=== PATIENT | male | born 1960 | race African-American/Black ===

== ENCOUNTER 2020-02-11 10:33 | Outpatient (CLI) | payer MEDICARE, SELFPAY ==
--- NOTE | ~2020-02-11 | US_ITS ---
EXAMINATION: US right upper quadrant DATE: 02/11/2020 11:13 INDICATION: Right upper quadrant abdominal pain. TECHNIQUE: Multiple grayscale and Doppler ultrasound images of the abdomen were obtained. COMPARISON: CT abdomen 11/22/2017 FINDINGS: The visualized portions of the head and body of the pancreas are normal. There is diffuse h epatic steatosis. No liver surface nodularity. There is normal flow in main portal vein. The gallblad naty is normal in size. No gallstones or gallbladder wall thickening. There was no sonographic Koroma sign. The common duct is normal and measures 1 mm. IMPRESSION: 1. Diffuse hepatic steatosis. Reviewed, dictated and finalized at location A.
== END 2020-02-11 10:34 | disposition home or self-care (01) ==
PROVIDERS: PCP Internal Medicine; Visit Provider Internal Medicine
DX: R10.11 Right upper quadrant pain (principal); K76.0 Fatty (change of) liver, not elsewhere classified
CPT/HCPCS: 76705

== ENCOUNTER 2020-02-19 07:57 | Outpatient (CLI) | payer MEDICARE, SELFPAY ==
--- NOTE | ~2020-02-19 | NM_ITS ---
EXAMINATION: NM hepatobiliary w pharm DATE: 02/19/2020 10:29 INDICATION: Abdominal pain COMPARISON: None. TECHNIQUE: 5.12 mCi Tc-99m mebrofenin (Choletec) was administered intravenously. Scintigraphic image s of the abdomen were obtained for one hour. 1.5 mcg sincalide (Kinevac) was administered by slow int ravenous infusion, and imaging was continued for 30 minutes. Gallbladder ejection fraction was calcul ated by the technologist. FINDINGS: There is normal clearance of radiotracer from the blood pool. There is homogeneous tracer uptake by t he liver. Activity progresses to the gallbladder and bowel. The gallbladder ejection fraction (GBEF) is 79% (normal 10-90%, but most patient with gallbladder dysfunction have GBEF < 35% which does over lap with the normal range). IMPRESSION: 1. Normal hepatobiliary scan. Reviewed, dictated and finalized at location A.
[2020-02-19 10:19] LABS: Basophils Absolute Auto 0.1 K/mm3 (0.0-0.1); Basophils Percent Auto 0.7 % (0.2-1.2); Eosinophils Absolute Auto 0.3 K/mm3 (0-0.3); Eosinophils Percent Auto 3.7 % (0-4.4); Hematocrit 47.8 % (42.0-52.0); Hemoglobin 15.6 g/dL (14.0-18.0); Immature Granulocyte Absolute 0.02 K/mm3 (0.00-0.031); Immature Granulocyte Percent A 0.2 % (0-0.5); Lymphocytes Absolute Auto 2.64 K/mm3 (0.9-3.2); Lymphocytes Percent Auto 28.9 % (18.3-44.2); Mean Corpuscular HGB Conc 32.6 g/dl (32-36); Mean Corpuscular Hemoglobin 30.2 pg (26-34); Mean Corpuscular Volume 92.6 fl (80-100); Mean Platelet Volume 8.8 fl (7.4-10.4); Monocytes Absolute Auto 0.8 K/mm3 (0.1-0.6); Monocytes Percent Auto 8.2 % (2.6-8.5); Neutrophils Absolute Auto 5.3 K/mm3 (1.3-6.7); Neutrophils Percent Auto 58.3 % (45.5-73.1); Platelet Count Result 309 k/mm3 (150-375); Red Blood Count 5.16 M/mm3 (4.6-6.20); Red Cell Distribution Width 12.9 % (11.5-14.5); White Blood Count 9.2 K/mm3 (4.5-10.0)
[2020-02-19 10:36] LABS: Hemoglobin A1C 6.1 % (<5.7)
[2020-02-19 10:49] LABS: Alanine Aminotransferase 28 U/L (4-50); Albumin Level 4.6 g/dL (3.5-5.1); Alkaline Phosphatase 83 U/L (38-126); Amylase 131 U/L (30-110); Aspartate Amino Transferase 41 U/L (17-59); Bilirubin,Total 0.6 mg/dL (0.2-1.3); Blood Urea Nitrogen 12 mg/dL (9-20); Calcium 9.4 mg/dL (8.4-10.2); Carbon Dioxide 31 mmol/L (22-30); Chloride 102 mmol/L (98-107); Estimated Glomerular Filt Rate > 60; Glucose 100 mg/dL (75-110); Lipase 115 U/L (23-300); Potassium 4.4 mmol/L (3.4-5.0); Sodium 136 mmol/L (137-145)
== END 2020-02-19 07:58 | disposition home or self-care (01) ==
PROVIDERS: PCP Internal Medicine; Visit Provider Internal Medicine
DX: R10.9 Unspecified abdominal pain (principal); R73.01 Impaired fasting glucose; K82.8 Other specified diseases of gallbladder
CPT/HCPCS: 36415; 78227; 80053; 82150; 83036; 83690; 85025; A9537; J2805

== ENCOUNTER 2020-04-11 00:28 | Outpatient (CLI) | payer MEDICARE, SELFPAY ==
[2020-04-11 18:41] LABS: SARS-CoV-2 RNA PCR Negative
== END 2020-04-11 00:29 | disposition home or self-care (01) ==
LOC: ANHCOVIDDT 00:28
PROVIDERS: PCP Internal Medicine; Visit Provider Internal Medicine Gastroenterology
DX: Z01.812 Encounter for preprocedural laboratory examination (principal); Z11.59 Encounter for screening for other viral diseases
CPT/HCPCS: 87635; C9803; U0003

== ENCOUNTER 2020-04-13 03:05 | Day surgery (SDC) | payer MEDICARE, SELFPAY ==
[2020-04-05 16:05] VITALS: BMI 27.5
[2020-04-13 08:30] VITALS: BP 119/80; PULSE 70; RESP 18; TEMP 35.7; O2SAT 100
[2020-04-13] MEDS: LACTATED RINGERS 1,000 ML 150 ML IV CONT (08:43)
--- NOTE | 2020-04-13 09:06 | WPDHPUPDATE1 ---
History and Physical Update Update Date/Time: 04/13/20 09:06 History and Physical has been reviewed, including an updated exam of the patient. There are NO changes in the patient's condition. Risks, benefits, and alternatives have been discussed and questions answered. Patient agrees to proceed with procedure.
--- NOTE | 2020-04-13 09:09 | WPDANESEPPF ---
Anes - Initial Pre Proc Eval Procedure: Operation Date: 04/13/20 09:45 Proposed Procedures p Esophagogastroduodenoscopy & Screening Colonoscopy - Juan Miguel Barrera MD Date/Time: 04/13/20 09:09 Surgeon: Juan Miguel Barrera MD Pre Op Diagnosis: abd pain, epigastric pain, neoplasm screening Patient Data Age: 59 Gender: M Height: 5 ft 5 in Weight: 76.2 kg Last Vital Signs Temp 96.3 F L 04/13/20 08:30 Pulse 70 04/13/20 08:30 Resp 18 04/13/20 08:30 BP 119/80 04/13/20 08:30 Pulse Ox 100 04/13/20 08:30 Allergies Allergy/AdvReac Type Severity Reaction Status Date / Time No Known Allergies Allergy Verified 04/13/20 08:29 Home Medications Medication Instructions Recorded Confirmed Type cyclobenzaprine 10 mg tablet 10 mg PO TID 10/13/19 04/05/20 History hydrocortisone valerate 0.2 % 1 applic TOPICAL BID PRN 10/13/19 04/13/20 History topical cream ketoconazole 2 % shampoo 1 applic TOPICAL 2XW 10/13/19 04/13/20 History pravastatin 40 mg tablet 40 mg PO DAILY #90 tablet 12/03/19 04/13/20 Rx cholecalciferol (vitamin D3) 125 125 mcg PO DAILY 02/11/20 04/13/20 History mcg (5,000 unit) capsule gabapentin 300 mg capsule 300 mg PO Q8H cap 02/11/20 04/13/20 History omeprazole 40 mg capsule,delayed 40 mg PO DAILY #30 cap 03/15/20 04/05/20 Rx release peg 3350-electrolytes 236 240 ml PO Q10M #4000 ml 03/31/20 Rx gram-22.74 gram-6.74 gram-5.86 gram solution Patient hx anesthesia problems: none Family hx anesthesia problems: none PMFSH Past Medical History Medical History (Updated 03/24/20 @ 10:36 by Juan Miguel Barrera MD) Abdominal pain Dyspepsia Family history of colon cancer in father Fatty liver Family History Family History (Updated 10/28/18 @ 14:26 by DOCTOR UNKNOWN) Mother Hypertension Family history of arthritis Family history of pancreatic cancer, Onset Age: 82 Patient's mother is , Onset Age: 82 Father Family history of arthritis Carcinoma of colon, Onset Age: 82 Sibling Patient's sister is in good health Patient's brother is in good health Other Family history of malignant neoplasm Social History Social History Smoking status: Never smoker Alcohol intake: current Anes - Eval Final PreProcedure Day of Procedure 04/13/20 09:09 Patient weight: normal Heart: regular rate and rhythm Lungs: clear to auscultation Airway: Mallampati scale class II Neurological: alert and oriented Last oral intake: >/= 8 hours ASA classification: III Emergent: no Anesthetic plan: proceed Anesthesia type and monitoring: general GIVS and standard monitoring Informed Consent: The patient's anesthetic plan and its attendant risks and benefits were discussed with the patient/family/POA. Questions were solicited and answers provided to the satisfaction of the patient/family/POA.
[2020-04-13 09:56] VITALS: BP 121/68; PULSE 85; RESP 18; O2SAT 100
[2020-04-13 10:06] VITALS: BP 117/79; PULSE 77; RESP 18; O2SAT 100
[2020-04-13 10:16] VITALS: BP 116/77; PULSE 74; RESP 18; O2SAT 98
== END 2020-04-13 10:39 | disposition home or self-care (01) ==
PROVIDERS: PCP Internal Medicine; Visit Provider Internal Medicine Gastroenterology
PROC: 0DJ08ZZ Inspection of Upper Intestinal Tract, Via Natural or Artificial Opening Endoscopic (ICD-10-PCS; CPT 43235; principal; 2020-04-13 09:45)
DX: Z12.11 Encounter for screening for malignant neoplasm of colon (principal); D12.3 Benign neoplasm of transverse colon; K29.50 Unspecified chronic gastritis without bleeding; B96.81 Helicobacter pylori [H. pylori] as the cause of diseases classified elsewhere; K57.30 Diverticulosis of large intestine without perforation or abscess without bleeding; K64.8 Other hemorrhoids; Z80.0 Family history of malignant neoplasm of digestive organs; E78.5 Hyperlipidemia, unspecified; K76.0 Fatty (change of) liver, not elsewhere classified
CPT/HCPCS: 45385; 43239; 88305; 88342; J2704; J7120

== ENCOUNTER 2021-01-25 10:53 | Observation (INO) | payer MEDICARE, OTHER, SELFPAY ==
[2021-01-25] VITALS (17 sets, daily range): BP systolic 119–158; BP diastolic 71–106; PULSE 54–85; RESP 10–18; TEMP 36.4–36.5; O2SAT 97–100
--- NOTE | ~2021-01-25 | XR_ITS ---
EXAMINATION: XR chest 1V portable EXAM DATE: 01/25/2021 12:04 INDICATION: Weakness. Dizziness. TECHNIQUE: Portable AP frontal chest x-ray was obtained. There is no prior study for comparison. FINDINGS: The lungs are clear. There are no pleural effusions. The cardiomediastinal silhouette is within normal limits. There is no pneumothorax suspected. The bones and soft tissues are unremarkab le. Cervical fusion hardware. IMPRESSION: No acute cardiopulmonary findings. Reviewed, dictated and finalized at location A.
--- NOTE | ~2021-01-25 | MR_ITS ---
EXAMINATION: MR brain/brain stem wo/w con DATE: 01/26/2021 08:48 INDICATION: Cerebral vascular accident. TECHNIQUE: Magnetic resonance imaging (MRI) of the brain and brainstem was performed without and with 14 mL MultiHance intravenous contrast. Sequences included sagittal and axial T1-weighted FSE, axial diffusion-weighted FS EPI, axial T2*-weighted GRE, axial T2-weighted FLAIR Propeller, and axial T2-we ighted Propeller. Postcontrast sequences included axial and coronal T1-weighted FSE. Apparent diffusi on coefficient (ADC) maps were created. COMPARISON: Head CT 01/25/2021 FINDINGS: There are scattered areas of nonspecific increased T2-weighted signal intensity in the cere bral white matter, which is within normal limits for the patient's age. There is no intracranial hemo rrhage, acute infarction, or abnormal intracranial mass lesion. The ventricles are normal in size. Th ere is mild mucosal thickening in the paranasal sinuses. The orbits are normal. The mastoid air cells are normal. IMPRESSION: 1. Normal aging brain. Reviewed, dictated and finalized at location A. IMPRESSION: 1. Normal aging brain.
--- NOTE | ~2021-01-25 | CT_ITS ---
EXAMINATION: CTA brain carotid EXAM DATE: 01/25/2021 11:51 INDICATION: Dizziness, lightheadedness, symptoms since Saturday. TECHNIQUE: Noncontrast head CT. Spiral CTA of the carotid arteries was performed with intravenous i njection 100 cc of Omnipaque 350. Axial, coronal, sagittal reformatted images reviewed. Additional r eformatted images created on dedicated 3-D workstation. NASCET comparable standard used to assess th e degree of arterial stenosis. Spiral CT angiogram cerebral arteries performed with the same intrave nous injection of contrast. Source images of the brain CTA transferred to dedicated workstation for 3 -D rotational image creation. Coronal, sagittal maximum intensity pixel images also reviewed. The d ose-length product (DLP) for this examination was 1645.64 mGy-cm. The exposure was tailored accordi ng to patient size, and iterative reconstruction (ASIR) was used as additional dose reduction techniq ue. There is no prior study for comparison. FINDINGS: There is minimal bilateral carotid siphon arterial sclerosis without stenosis. No carotid b ulb plaque, 0% stenosis bilaterally. The right vertebral artery is dominant. There is no carotid or vertebral basilar arterial dissection or fibromuscular dysplasia. There are no cerebral artery aneury sms. There is symmetric cerebral artery arborization. The sagittal, transverse and sigmoid sinuses en kandy normally, no venous sinus thrombosis. Internal cerebral veins also enhance normally. There is no acute intraparenchymal hemorrhage. No evidence of intraparenchymal brain mass lesion. N o evidence of acute infarction. There is no mass effect or midline shift. There is no obstructive hyd rocephalus suspected. There are no extra-axial collections. There are no calvarial acute fractures. Small to moderate-sized right maxillary sinus mucous retention cyst. Right upper lobe calcified granu dionte. Cervical surgical changes, spondylosis. IMPRESSION: 1. No acute carotid or intracranial findings. 2. Bilateral carotid bulb 0% stenosis. Reviewed, dictated and finalized at location A.
--- NOTE | 2021-01-25 11:00 | ECG_ITS ---
Measurements Intervals [place] Rate: 79 P: 52 MT: 163 QRS: 1 QRSD: 89 T: -3 QT: 326 QTc: 375 Interpretive Statements SINUS RHYTHM DELAYED PRECORDIAL R/S TRANSITION NONSPECIFIC T-WAVE ABNORMALITY- INFERIOR LEADS BORDERLINE ECG Electronically Signed On 01-25-2021 11:51:07 CDT by Jarad Singh D.O.
[2021-01-25 11:12] LABS: Basophils Absolute Auto 0.1 K/mm3 (0.0-0.1); Basophils Percent Auto 0.5 % (0.2-1.2); Eosinophils Absolute Auto 0.2 K/mm3 (0-0.3); Eosinophils Percent Auto 1.5 % (0-4.4); Hemoglobin 14.7 g/dL (14.0-18.0); Immature Granulocyte Absolute 0.04 K/mm3 (0.00-0.031); Immature Granulocyte Percent A 0.3 % (0-0.5); Lymphocytes Absolute Auto 2.14 K/mm3 (0.9-3.2); Lymphocytes Percent Auto 17.4 % (18.3-44.2); Mean Corpuscular HGB Conc 32.7 g/dl (32-36); Mean Corpuscular Hemoglobin 30.2 pg (26-34); Mean Corpuscular Volume 92.4 fl (80-100); Mean Platelet Volume 8.7 fl (7.4-10.4); Monocytes Absolute Auto 0.7 K/mm3 (0.1-0.6); Monocytes Percent Auto 5.4 % (2.6-8.5); Neutrophils Absolute Auto 9.2 K/mm3 (1.3-6.7); Neutrophils Percent Auto 74.9 % (45.5-73.1); Platelet Count Result 339 k/mm3 (150-375); Red Blood Count 4.87 M/mm3 (4.6-6.20); Red Cell Distribution Width 13.6 % (11.5-14.5); White Blood Count 12.3 K/mm3 (4.5-10.0)
[2021-01-25 11:20] LABS: Anion Gap 6 mmol/L (8-16); Blood Urea Nitrogen 13 mg/dL (9-20); Calcium 9.1 mg/dL (8.4-10.2); Carbon Dioxide 28 mmol/L (22-30); Chloride 104 mmol/L (98-107); Estimated CRCL calculation 58 ml/min; Estimated Glomerular Filt Rate > 60; Glucose 103 mg/dL (75-110); Potassium 4.1 mmol/L (3.4-5.0); Sodium 138 mmol/L (137-145)
[2021-01-25 11:30] LABS: INR 0.8; Prothrombin Time 12.1 Seconds (11.1-14.7)
[2021-01-25 11:31] LABS: Partial Thromboplastin Time 25.8 SECONDS (22.3-36.8)
[2021-01-25 11:32] LABS: Troponin I < 0.012 ng/mL (0.000-0.034)
--- NOTE | 2021-01-25 13:19 | ED.NEUROSD ---
HPI - Neuro Symptoms/Deficit General Chief Complaint: Neuro Symptoms/Deficit <Leandro Winston PA-C - Last Filed: 01/25/21 13:25> Stated Complaint: neuro deficits, slurred speech <CLADUIA Hackett Last Filed: 01/25/21 13:25> Time Seen by Provider: 01/25/21 10:56 <Leandro Winston PA-C - Last Filed: 01/25/21 13:25> Source: patient, family and RN notes reviewed <CLAUDIA Hackett Last Filed: 01/25/21 13:25> Mode of arrival: ambulatory <CLAUDIA Hackett Last Filed: 01/25/21 13:25> Limitations: no limitations <CLAUDIA Hackett Last Filed: 01/25/21 13:25> History of Present Illness HPI Narrative: Patient is a 60-year-old male who presents to emergency department for evaluation of right-sided cramping that began in the foot and ascended to the upper extremity and into the head patient denies similar occurrence in the past this began Saturday evening persisted into the morning also had a component of feeling dizzy and lightheaded and feeling as though his gait is unsteady. Patient denies similar occurrence in the past. Patient also noted a twinge in the right side of the neck. Patient notes that his symptoms have persisted since onset. On arrival patient in no distress. <Leandro Winston PA-C - Last Filed: 01/25/21 13:25> Related Data Home Medications: Home Medications Medication Instructions Recorded Confirmed cyclobenzaprine 10 mg tablet 10 mg PO BID PRN 10/13/19 01/25/21 hydrocortisone valerate 0.2 % 1 applic TOPICAL BID PRN 10/13/19 01/25/21 topical cream ketoconazole 2 % shampoo 1 applic TOPICAL 2XW PRN 10/13/19 01/25/21 cholecalciferol (vitamin D3) 125 125 mcg PO DAILY 02/11/20 01/25/21 mcg (5,000 unit) capsule gabapentin 300 mg PO BID 01/25/21 01/25/21 <CLAUDIA Hackett Last Filed: 01/25/21 13:25> Allergies/Adverse Reactions: Allergies Allergy/AdvReac Type Severity Reaction Status Date / Time No Known Allergies Allergy Verified 01/25/21 11:01 <Leandro Winston PA-C - Last Filed: 01/25/21 13:25> Review of Systems Review of Systems: All systems reviewed & are unremarkable except as noted in HPI and below <Leandro Winston PA-C - Last Filed: 01/25/21 13:25> PMFSH Past Medical History Medical History: Medical History (Updated 01/25/21 @ 13:25 by Leandro Winston PA-C) Abdominal pain Cervical vertebral fusion Dyspepsia Family history of colon cancer in father Fatty liver <Leandro Winston PA-C - Last Filed: 01/25/21 13:25> Surgical History Surgical History: Surgical History (Updated 01/25/21 @ 13:22 by Leandro Winston PA-C) History of lumbar fusion <Leandro Winston PA-C - Last Filed: 01/25/21 13:25> Family History Family History: Family History (Updated 01/25/21 @ 15:52 by Stephanie Grossman RN) Mother Family history of arthritis Patient's mother is , Onset Age: 82 Family history of pancreatic cancer, Onset Age: 82 Hypertension Father Family history of arthritis Carcinoma of colon, Onset Age: 82 Sibling Patient's brother is in good health Patient's sister is in good health Other Family history of malignant neoplasm <Leandro Winston PA-C - Last Filed: 01/25/21 13:25> Social History Social History: Social History Smoking status: Never smoker Alcohol intake: former Substance use: never Spiritual care concerns: No <Leandro Winston PA-C - Last Filed: 01/25/21 13:25> Exam Narrative: Exam Narrative: GENERAL: Well-appearing, well-nourished, and in no acute distress. HEAD: Normocephalic, atraumatic. EYES: PERRLA and EOMI. ENT: Nares clear, no rhinorrhea or epistaxis. Mucous membranes moist. NECK: Supple. No adenopathy or masses. No carotid bruits or JVD CHEST: Clear to auscultation. No respiratory distress. No wheezes rales or rhonchi HEART: Regular rate and rhythm. No murmur heard. Enriqueta
[2021-01-25] MEDS: ASPIRIN 325 MG TABLET PO (14:00)
--- NOTE | 2021-01-25 15:20 | PCOTNOTE ---
Attempted OT evaluation, but unable to complete as patient has not arrived to floor yet. Patient still in ER at this time. Will attempt again tomorrow.
--- NOTE | 2021-01-25 15:24 | PC.NURSE ---
This patient, Juliano Hernandez, was admitted to Medical Room 349-01. Patient/family oriented to hospital policies and general routines including ID bracelet, bed and alarms, visiting hours, pain management, procedures, bathroom and other care routines, personal items, smoking policy, room service/diet, and visiting hours. Information on how to activate the Rapid Response Team has been discussed. Patient/Family are encouraged to report perceived risks to care and to ask questions if they do not understand what they are told or what they should do.
--- NOTE | 2021-01-25 17:55 | PM.IMHP ---
H&P: HPI History of Present Illness Date/Time: 01/25/21 17:55 Chief Complaint: Dizziness Narrative: This is a 60-year-old male with past medical history significant for RECENT C6 THROUGH 7 ANTERIOR DISKECTOMY AND FUSION SECONDARY TO MYELOPATHY. THE PATIENT HAS BEEN DOING WELL AFTER THIS PROCEDURE THAT WAS PERFORMED IN OCTOBER AT [facility]. PATIENT HAS BEEN IN HIS USUAL STATE OF HEALTH UNTIL HE FELL DIZZY SENSATION OF WARMTH TO THE RIGHT HEMIBODY AND HEMICRANIA WITH SHOOTING PAIN THROUGH HIS RIGHT, THIS HAPPENED WHILE THE PATIENT WAS IN HIS SLEEP WHEN HE GOT UP IN THE MORNING HE FELT ON STATUS BUT DID NOT NOTICE ANY FOCAL MOTOR DEFICIT OR VISION CHANGES. PATIENT HAS BEEN ABLE TO VOID DENIES ANY INCONTINENCE. NO NUMBNESS OR TINGLING. DENIES ANY PAIN AT THE PRESENT TIME. PATIENT DENIES ANY FEVERS RIGORS OR CHILLS NO NAUSEA NO VOMITING NO DIARRHEA NO SHORTNESS OF BREATH NO COUGH NO SPUTUM PRODUCTION. PRELIMINARY WORKUP WAS ESSENTIALLY NONREVEALING. WILL PLACE PATIENT IN OBSERVATION OVERNIGHT. Review of Systems Review of Systems: Narrative: PATIENT HAD RECENT C6 THROUGH 7 SURGERY PERFORMED AT [facility] IN OCTOBER HE HAS BEEN DOING FAIRLY WELL GOING TO HIS PHYSICAL THERAPY SESSIONS HE PRESENTED TO THE EMERGENCY ROOM AFTER IN THE MIDDLE OF THE NIGHT HE WOKE UP WITH RIGHT-SIDED HEMIBODY AND HEMICRANIA SHOOTING PAIN WARMTH AND DIZZINESS IN THE MORNING HE FELT DIZZY All systems reviewed & are unremarkable except as noted in HPI and below (HPI) PMFSH Past Medical History Medical History (Updated 01/25/21 @ 13:25 by Leandro Winston PA-C) Abdominal pain Cervical vertebral fusion Dyspepsia Family history of colon cancer in father Fatty liver Surgical History Surgical History (Updated 01/25/21 @ 13:22 by Leandro Winston PA-C) History of lumbar fusion Family History Family History (Updated 01/25/21 @ 15:52 by Stephanie Grossman RN) Mother Family history of arthritis Patient's mother is , Onset Age: 82 Family history of pancreatic cancer, Onset Age: 82 Hypertension Father Family history of arthritis Carcinoma of colon, Onset Age: 82 Sibling Patient's brother is in good health Patient's sister is in good health Other Family history of malignant neoplasm Social History Social History Smoking status: Never smoker Alcohol intake: former Substance use: never Spiritual care concerns: No Meds Home Medications and Allergies Home Medications Medication Instructions Recorded Confirmed Type cyclobenzaprine 10 mg tablet 10 mg PO BID PRN 10/13/19 01/25/21 History hydrocortisone valerate 0.2 % 1 applic TOPICAL BID PRN 10/13/19 01/25/21 History topical cream ketoconazole 2 % shampoo 1 applic TOPICAL 2XW PRN 10/13/19 01/25/21 History cholecalciferol (vitamin D3) 125 125 mcg PO DAILY 02/11/20 01/25/21 History mcg (5,000 unit) capsule rosuvastatin 20 mg tablet 20 mg PO DAILY #90 tablet 10/17/20 01/25/21 Rx omeprazole 40 mg capsule,delayed See Rx Instructions .ROUTE 01/10/21 01/25/21 Rx release .COMPLEX #90 cap gabapentin 300 mg PO BID 01/25/21 01/25/21 History Allergies Allergy/AdvReac Type Severity Reaction Status Date / Time No Known Allergies Allergy Verified 01/25/21 11:01 Vital Signs Vital Signs - 24 hr 01/25/21 10:57 01/25/21 11:15 01/25/21 13:55 Temperature Pulse Rate 83 79 54 L Respiratory Rate 18 15 16 Blood Pressure 158/106 H 154/96 H 137/97 H Pulse Oximetry 99 97 98 01/25/21 14:01 01/25/21 14:19 01/25/21 14:34 Temperature Pulse Rate 82 78 77 Respiratory Rate 18 10 L 13 Blood Pressure Pulse Oximetry 99 97 98 01/25/21 14:45 01/25/21 14:46 01/25/21 15:00 Temperature Pulse Rate 85 82 79 Respiratory Rate 15 11 L 12 Blood Pressure 120/88 125/81 Pulse Oximetry 100 100 98 01/25/21 15:01 01/25/21 15:18 01/25/21 15:25 Temperature Pulse Rate 75 78 Respiratory Rate 12 11 L 16 Blo
[2021-01-25] MEDS: GABAPENTIN 300 MG CAPSULE PO (20:59)
[2021-01-25 21:28] LABS: Glucose Point of Care 108 (65-105)
[2021-01-26] VITALS: PULSE 78
[2021-01-26 04:00] VITALS: BP 125/85; PULSE 72; PULSE 78; RESP 16; TEMP 36.6; O2SAT 100
--- NOTE | 2021-01-26 06:00 | ECHO_ITS ---
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 Strain analysis performed. Summary 1. Complete two-dimensional, color flow and Doppler transthoracic echocardiogram is performed. 2. Left ventricular chamber dimension is normal. 3. Left ventricular systolic function is normal, estimated at 60-65%. 4. There is mildly increased left ventricular wall thickness. 5. The left ventricular diastolic function is grade I diastolic dysfunction. 6. E/e' 4 is not elevated. 7. Global longitudinal strain is normal at -20.2%. Left Ventricle E/e' 4 is not elevated. Global longitudinal strain is normal at -20.2%. Left ventricular chamber dimension is normal. Left ventricular systolic function is normal, estimated at 60-65%. There is mildly increased left ventricular wall thickness. The left ventricular diastolic function is grade I diastolic dysfunction. Right Ventricle Right ventricular systolic function is normal with normal TAPSE 2.0 cm. Right ventricular chamber dimension is normal. Left Atria Left atrial chamber dimension is normal. Right Atria Right atrial chamber dimension is normal. Aortic Valve The aortic valve is trileaflet. There is no aortic valve stenosis. There is no aortic valve regurgitation. Pulmonic Valve There is no pulmonic regurgitation. Mitral Valve There is no mitral valve stenosis. There is no mitral valve regurgitation. Tricuspid Valve There is no tricuspid valve regurgitation. Pericardium/Pleural There is no pericardial effusion. Inferior Vena Cava Normal inferior vena cava with >50% collapse upon inspiration consistent with normal right atrial pressure, 5 mmHg. Aorta The aortic root size at the sinus of Valsalva is normal. Left Ventricular Outflow Tract Name Value Normal LVOT 2D LVOT Diameter 2.0 cm LVOT Doppler LVOT Peak Gradient 4 mmHg LVOT Mean Gradient 2 mmHg LVOT VTI 17 cm LVOT VTI/AV VTI Ratio 0.9 LVOT Stroke Volume 55 ml LVOT CO 4.0 l/min LVOT CI 2.2 l/min/m2 Mitral Valve Name Value Normal MV Doppler
[2021-01-26 08:00] VITALS: PULSE 85
[2021-01-26 08:30] VITALS: BP 141/84; PULSE 80; RESP 18; TEMP 36.2; O2SAT 99
[2021-01-26] MEDS: PANTOPRAZOLE 40 MG TABLET PO (08:51)
[2021-01-26] MEDS: ROSUVASTATIN 10 MG TABLET 20 MG PO (08:51)
[2021-01-26] MEDS: CHOLECALCIFEROL 1,000 UNITS TABLET 5000 UNITS PO (08:51)
[2021-01-26] MEDS: GABAPENTIN 300 MG CAPSULE PO (09:36)
--- NOTE | 2021-01-26 10:58 | PM.DS ---
DS: Admitting Diagnosis Admitting Diagnosis Admitting Diagnosis: 1) Dizziness: Code(s): R42 - Dizziness and giddiness Status: Acute Assessment and Plan: PRELIMINARY WORKUP IS ESSENTIALLY NONREVEALING NONFOCAL PHYSICAL EXAM LIKELY SECONDARY TO MEDS PATIENT IS ON FLEXERIL AND GABAPENTIN WHICH CAN MAKE PATIENT SIGNIFICANTLY ORTHOSTATIC WILL STOP FLEXERIL DISCUSS WITH PATIENT TAPERING OFF OF GABAPENTIN FOR WHICH HE WILL FOLLOW-UP IN OUTPATIENT SETTING WITH HIS NEUROSURGEON AND PCP SUPPORTIVE CARE (2) GERD (gastroesophageal reflux disease): Qualifiers: Esophagitis presence: with esophagitis Esophagitis bleeding: without hemorrhage Qualified Code(s): K21.00 - Gastro-esophageal reflux disease with esophagitis, without bleeding Code(s): K21.9 - Gastro-esophageal reflux disease without esophagitis Status: Acute Assessment and Plan: CONTINUE PPI (3) 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: Code(s): Z98.890 - Other specified postprocedural states Status: Acute Assessment and Plan: STABLE DS: Discharge Diagnosis Discharge Diagnosis (1) Dizziness: Code(s): R42 - Dizziness and giddiness Status: Acute Assessment and Plan: PRELIMINARY WORKUP IS ESSENTIALLY NONREVEALING NONFOCAL PHYSICAL EXAM LIKELY SECONDARY TO MEDS PATIENT IS ON FLEXERIL AND GABAPENTIN WHICH CAN MAKE PATIENT SIGNIFICANTLY ORTHOSTATIC WILL STOP FLEXERIL DISCUSS WITH PATIENT TAPERING OFF OF GABAPENTIN FOR WHICH HE WILL FOLLOW-UP IN OUTPATIENT SETTING WITH HIS NEUROSURGEON AND PCP SUPPORTIVE CARE (2) GERD (gastroesophageal reflux disease): Qualifiers: Esophagitis presence: with esophagitis Esophagitis bleeding: without hemorrhage Qualified Code(s): K21.00 - Gastro-esophageal reflux disease with esophagitis, without bleeding Code(s): K21.9 - Gastro-esophageal reflux disease without esophagitis Status: Acute Assessment and Plan: CONTINUE PPI (3) 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 PRELIMINARY WORKUP WAS ESSENTIALLY NONREVEALING. IT WAS FELT THAT THIS WAS SECONDARY TO PATIENT'S NEUROPATHY SECONDARY TO RADICULOPATHY AND RECENT SURGERY PATIENT WAS NONFOCAL PHYSICAL EXAM. PATIENT WAS PLACED IN OBSERVATION FOR FURTHER MONITORING. OVERNIGHT THERE WERE NO NEW EVENTS CONSULTS OBTAINED: NO CONSULTS PROCEDURES: NO PROCEDURES Status at Discharge Cognitive/behavioral status at discharge: AAOX3 Functional status at discharge: independent ambulation Overall status at discharge: patient is back to baseline Time Spent with Patient Time attestation: Total time spent providing and/or coordinating discharge services: Exam Narrative: Exam Narrative: PATIENT IS SITTING IN BED EATING DINNER WELL-APPEARING IN NO ACUTE DISTRESS Const: General: comfortable, no acute distress, well developed, alert and awake Nutritional Appearance: average body habitus Orientation/consciousness: patient oriented x3 HENMT: Head: normal to inspection, normocephalic and atraumatic Ears: hearing grossly normal bilaterally Face and sinus: normal facial exam Eyes: General: appearance normal, both eyes and all related structures Pupils: Equal, round and reactive pupils present EOM: EOMs intact bilaterally Neck: Neck: full ROM, no lymphadenopathy and no JVD Thyroid: thyroid normal Lymphatic: no lymphadenopathy noted Resp: Effort & Inspection: normal respiratory effort
== END 2021-01-26 11:55 | disposition home or self-care (01) ==
LOC: ANHED 13:25 → ANH3MED 01-26 10:58
PROVIDERS: Emergency Medicine Emergency Medical Services; Admitting Provider Family Medicine; Emergency Provider General Practice; PCP Internal Medicine; Visit Provider Internal Medicine
DX: R42 Dizziness and giddiness (principal); Z98.1 Arthrodesis status; K21.9 Gastro-esophageal reflux disease without esophagitis; I51.9 Heart disease, unspecified; M79.671 Pain in right foot
CPT/HCPCS: 36415; 70496; 70498; 70553; 71045; 80048; 82948; 84484; 85025; 85610; 85730; 93005; 93306; 97161; 97165; 99285; A9270; A9577; G0378; Q9967

== ENCOUNTER 2022-10-24 01:36 | Day surgery (SDC) | payer MEDICARE, SELFPAY ==
[2022-10-22 11:03] VITALS: BMI 26.2
[2022-10-24 07:21] VITALS: BP 116/72; PULSE 70; RESP 20; TEMP 36.4; O2SAT 100
[2022-10-24] MEDS: LACTATED RINGERS 1,000 ML 150 ML IV CONT (07:29)
--- NOTE | 2022-10-24 08:00 | WPDANESEPPF ---
Anes - Initial Pre Proc Eval Procedure: Operation Date: 10/24/22 08:30 Proposed Procedures p Esophagogastroduodenoscopy - Juan Miguel Barrera MD Date/Time: 10/24/22 08:00 Surgeon: Juan Miguel Barrera MD Pre Op Diagnosis: GERD Patient Data Age: 62 Gender: M Height: 1.64 m Weight: 71.9 kg Last Vital Signs Temp 97.6 F 10/24/22 07:21 Pulse 70 10/24/22 07:21 Resp 20 10/24/22 07:21 BP 116/72 10/24/22 07:21 Pulse Ox 100 10/24/22 07:21 O2 Del Method Room Air 10/24/22 07:21 Allergies Allergy/AdvReac Type Severity Reaction Status Date / Time No Known Allergies Allergy Verified 10/24/22 07:20 Home Medications Medication Instructions Recorded Confirmed Type hydrocortisone valerate 0.2 % 1 applic topical BID PRN eczema 10/13/19 10/24/22 History topical cream ketoconazole 2 % shampoo 1 applic topical 2XW PRN rash 10/13/19 10/24/22 History multivitamin 1 tablet PO DAILY 06/06/21 10/24/22 History rosuvastatin 40 mg tablet 40 mg PO DAILY #90 tabs 03/13/22 10/24/22 Rx famotidine 20 mg tablet 20 mg PO BID 10/22/22 10/24/22 History gabapentin 300 mg capsule 300 mg PO TID 10/22/22 10/24/22 History Patient hx anesthesia problems: none Family hx anesthesia problems: none Results Review: All pre-operative results and documents have been reviewed as part of the pre-operative evaluation. [facility] Past Medical History Medical History (Updated 10/18/22 @ 10:25 by Juan Miguel Barrera MD) Abdominal pain Adenomatous colon polyp Cervical vertebral fusion Colon, diverticulosis Dyspepsia Family history of colon cancer in father Family history of pancreatic cancer Fatty liver Helicobacter pylori (H. pylori) Surgical History Surgical History History of lumbar fusion Family History Family History Mother Family history of arthritis Patient's mother is , Onset Age: 82 Family history of pancreatic cancer, Onset Age: 82 Hypertension Father Family history of arthritis Carcinoma of colon, Onset Age: 82 Sibling Patient's brother is in good health Patient's sister is in good health Other Family history of malignant neoplasm Social History Social History Smoking status: Never smoker Second hand tobacco smoke exposure: No Alcohol intake: current Drinks per week: 7 Alcohol use details: Social Substance use: never Substance use type: does not use Living arrangements: with family Spiritual care concerns: No Anes - Eval Final PreProcedure Day of Procedure 10/24/22 08:00 Patient weight: normal Heart: regular rate and rhythm Lungs: clear to auscultation Airway: Mallampati scale class II Neurological: alert and oriented Last oral intake: >/= 8 hours ASA classification: III Emergent: no Anesthetic plan: proceed Anesthesia type and monitoring: general GIVS and standard monitoring Results Review: All pre-operative results and documents have been reviewed as part of the pre-operative evaluation. Informed Consent: The patient's anesthetic plan and its attendant risks and benefits were discussed with the patient/family/POA. Questions were solicited and answers provided to the satisfaction of the patient/family/POA.
--- NOTE | 2022-10-24 08:04 | WPDHPUPDATE1 ---
History and Physical Update Update Date/Time: 10/24/22 08:04 History and Physical has been reviewed, including an updated exam of the patient. There are NO changes in the patient's condition. Risks, benefits, and alternatives have been discussed and questions answered. Patient agrees to proceed with procedure.
[2022-10-24 08:16] VITALS: BP 109/65; PULSE 64; RESP 22; O2SAT 100
[2022-10-24 08:26] VITALS: BP 105/73; PULSE 64; RESP 19; O2SAT 100
[2022-10-24 08:36] VITALS: BP 112/75; PULSE 61; RESP 18; O2SAT 100
--- NOTE | 2022-10-24 09:16 | SUR.PHASEII ---
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
== END 2022-10-24 09:47 | disposition home or self-care (01) ==
PROVIDERS: Visit Provider Internal Medicine Gastroenterology
PROC: 0DJ08ZZ Inspection of Upper Intestinal Tract, Via Natural or Artificial Opening Endoscopic (ICD-10-PCS; CPT 43235; principal; 2022-10-24 08:30)
DX: K29.70 Gastritis, unspecified, without bleeding (principal); K76.0 Fatty (change of) liver, not elsewhere classified; Z98.1 Arthrodesis status
CPT/HCPCS: 43239; 87081; 88305; 88342; J2704; J7120

== ENCOUNTER 2022-10-26 07:33 | Outpatient (CLI) | payer MEDICARE, SELFPAY ==
--- NOTE | ~2022-10-26 | US_ITS ---
Abdominal Sonogram: Real-time sonographic imaging of the abdomen was performed. Clinical History: Abdominal pain Findings: The liver appears normal with no evidence of mass lesion or bile duct dilatation. Main por pamela vein demonstrates normal direction of flow. The spleen is normal in size without evidence of foca l lesion. The gallbladder is well distended, and appears normal with no evidence of gallstone or wal l thickening. The common bile duct measures 2 mm. The visualized pancreas, aorta, and IVC are unrema rkable. The right kidney measures 9.0 cm in length and the left kidney measures 10.3 cm. There is n o hydronephrosis or renal calculus. Impression: Unremarkable abdominal ultrasound. Reviewed, dictated and finalized at location . [employer] WORKER Impression: Unremarkable abdominal ultrasound.
== END 2022-10-26 07:34 | disposition home or self-care (01) ==
PROVIDERS: Visit Provider Internal Medicine Gastroenterology
DX: R10.9 Unspecified abdominal pain (principal); Z80.0 Family history of malignant neoplasm of digestive organs
CPT/HCPCS: 76700

== ENCOUNTER 2023-02-19 16:09 | Outpatient (CLI) | payer OTHER, SELFPAY ==
--- NOTE | ~2023-02-19 | XR_ITS ---
EXAMINATION: XR wrist LT min 3V DATE: 02/19/2023 16:27 INDICATION: Left wrist pain. TECHNIQUE: 4 views of left wrist were obtained. COMPARISON: None. FINDINGS: Bone alignment is normal. No fracture. Joint spaces are well maintained. IMPRESSION: 1. Normal left wrist. Reviewed, dictated and finalized at location A. IMPRESSION: 1. Normal left wrist.
== END 2023-02-19 16:10 | disposition home or self-care (01) ==
LOC: ANHIMG 16:16
PROVIDERS: PCP Family Medicine; Visit Provider Nurse Practitioner Family
DX: M25.532 Pain in left wrist (principal)
CPT/HCPCS: 73110

== ENCOUNTER 2024-09-17 08:00 | Outpatient (CLI) | payer OTHER, SELFPAY ==
--- NOTE | ~2024-09-17 | MR_ITS ---
EXAMINATION: MR thoracic spine wo con DATE: 09/17/2024 08:32 INDICATION: Thoracic spine pain TECHNIQUE: Magnetic resonance imaging (MRI) of the thoracic spine was performed without intravenous c ontrast. Sagittal localizer T1-weighted FSE of the cervicothoracic spine was obtained. Thoracic spine sequences included sagittal T2-weighted FSE, sagittal T1-weighted SE, Sagittal T2-weighted FS FSE, a nd axial T2-weighted FSE. COMPARISON: Cervical spine MR dated 05/30/2015 FINDINGS: Alignment is normal.On the larger [id number] localizer imaging there is C6-C7 anterior spinal fusi on with magnetic field artifact associate with anterior plate and screw fixation. Additional magnetic field artifact associated with instrumented posterior spinal fusion which extends from C3-C6 with as sociated C3-C5 laminectomies. Severe disc height loss with fibrovascular degenerative endplate change s at T7-T8 through T9-T10.There is minimal anterior wedging at T7 and T8 likely related to the endpla te remodeling. Remaining vertebral body heights are normal. Additional moderate disc height loss at C 7-T1, T3-T4 through T6-T7 and mild disc height loss at T11-T12. There are diffuse disc bulges or smal ler protrusions contributing to mild central canal stenosis at T2-T3 through T11-T12, most prominent at T7-T8 through T10-T11. There is unchanged small region of myelomalacia with focal increased T2 sig nal and subtle thinning of the cord at T3-T4. There is otherwise normal spinal cord signal. The conus terminates at L1. Paravertebral soft tissues are unremarkable. IMPRESSION: 1. Severe lower thoracic predominant spondylosis. 2. Unchanged chronic focal myelomalacia at T3-T4 which may be related to the adjacent degenerative di sc disease at this level. 3. Postoperative changes in the cervical spine as detailed above. Reviewed, dictated and finalized at location A. [employer] IMPRESSION: 1. Severe lower thoracic predominant spondylosis. 2. Unchanged chronic focal myelomalacia at T3-T4 which may be related to the ad jacent degenerative disc disease at this level. 3. Postoperative changes in the cervical spine as detailed above.
== END 2024-09-17 08:01 | disposition home or self-care (01) ==
LOC: MICIMG 08:01
PROVIDERS: PCP Nurse Practitioner Family; Visit Provider Nurse Practitioner Family
DX: M47.814 Spondylosis without myelopathy or radiculopathy, thoracic region (principal); G95.89 Other specified diseases of spinal cord; M51.34 Other intervertebral disc degeneration, thoracic region; M43.22 Fusion of spine, cervical region; Z98.890 Other specified postprocedural states
CPT/HCPCS: 72146